=== PATIENT | male | born 1940 ===

== ENCOUNTER 2022-11-06 05:55 | Observation (INO) | payer MEDICARE, OTHER, SELFPAY ==
[2022-11-06] VITALS (15 sets, daily range): BP systolic 131–189; BP diastolic 64–93; PULSE 55–71; RESP 16–18; TEMP 36.2–37.1; O2SAT 87–99; BMI 26.2
--- NOTE | 2022-11-06 05:57 | DI.RAD.S_ITS ---
PROCEDURE: XR CHEST 1V INDICATIONS: chest pain TECHNIQUE: One view of the chest was acquired. COMPARISON: None. FINDINGS: Surgical changes and devices: None. Lungs and pleura: Lungs are clear. No pleural effusions or pneumothorax. Mediastinum: Mediastinal contours appear normal. Heart size is normal. Bones and chest wall: No suspicious bony lesions. Overlying soft tissues appear unremarkable. IMPRESSION: No acute process. Dictated by: Tano Soto M.D. on 11/06/2022 at 7:57 Approved by: Tano Soto M.D. on 11/06/2022 at 7:58
--- NOTE | 2022-11-06 06:22 | ED_ITS ---
HPI - General Adult <Gerson Gonzalez DO - Last Filed: 11/06/22 17:54> General Chief complaint: Chest Pain Stated complaint: Chest Pain Time Seen by Provider: 11/06/22 06:04 History of Present Illness HPI narrative: 82-year-old male nonsmoker with cardiac history presents by EMS for evaluation of epigastric and retrosternal chest pressure that woke him from sleep a few hours ago. He had been in his normal state of health and denies any recent exertional symptoms or exercise intolerance. He denies associated symptoms such as dizzy, weak or light-headedness, no unexplained diaphoresis and no nausea or vomiting. He contacted EMS on [place] and had been given full-dose aspirin and nitroglycerin, the nitro made his pain completely resolve. The medics report that they made attempts to airlift him but there was no access to air medical transport due to fog. He was transported by the [employer] boat and picked up by local EMS. He denies other obvious provocation. Related Data Home Medications Medication Instructions Recorded Confirmed ASPIRIN (#ASPIR 81) 81 mg PO QDAY ##0 07/04/11 ASPIRIN (#ASPIRIN E.C.) 325 mg PO PRN ##0 07/04/11 CHOLECALCIFEROL (VITAMIN D) 2,000 iu PO Q3DAYS ##0 07/04/11 GLUC NINA/CHONDRO NINA A/VIT C/MN 1 cap PO QDAY ##0 07/04/11 (Glucosamine 1,500 Complex Cp) Multivitamin, Minerals, and 1 tab PO QDAY ##0 07/04/11 (#CENTRUM SILVER) atorvastatin 10 mg tablet (Lipitor) 10 mg PO HS ##0 07/04/11 dutasteride 0.5 mg capsule 0.5 mg PO QWEEK ##0 07/04/11 (Avodart) irbesartan 300 mg tablet (Avapro) 300 mg PO QDAY ##0 07/04/11 metoprolol tartrate 50 mg tablet 50 mg PO BID ##0 07/04/11 Allergies Allergy/AdvReac Type Severity Reaction Status Date / Time Milk Containing Products AdvReac Intermediate Verified 11/06/22 10:55 (Dairy) DIURETIC Allergy Severe NOT SURE Uncoded 07/12/17 11:58 OF NAME OF MED CAUSED GOUT SYMPTOMS Review of Systems <Gerson Gonzalez DO - Last Filed: 11/06/22 17:54> Review of Systems Narrative: GENERAL: Denies chills, fatigue, malaise, fever, sweats. HEENT: Denies sinus pain, ear pain, sore throat, difficulty swallowing, dizziness. RESPIRATORY: Denies dyspnea, cough, wheezing, hemoptysis, sputum. CARDIOVASCULAR: See HPI GASTROINTESTINAL: Denies nausea, vomiting, abdominal pain, diarrhea, constipation, melena. : Denies dysuria, frequency, incontinence, hematuria, urinary retention. MUSCULOSKELETAL: denies weakness, joint pain, or bony pain SKIN: Denies rash, skin lesions, or other NEUROLOGIC: Denies weakness, headache, numbness, change in speech, confusion, seizures, incoordination. PSYCHIATRIC: No concerning psychosocial issues. 12 point review of systems is negative except for those stated above Patient History <Gerson Gonzalez DO - Last Filed: 11/06/22 17:54> Medical History (Updated 11/06/22 @ 12:07 by Alex Stuart MD) BPH (benign prostatic hyperplasia) Hyperlipidemia Hypertension Surgical History Status post appendectomy Status post hernia repair (02/12/16) Family History (Updated 11/06/22 @ 12:08 by Alex Stuart MD) Sister Age: 75 Diabetes mellitus Mother Alzheimer's dementia Social History household members: children Smoking Status: Never smoker alcohol intake: former Exam <Gerson Gonzalez DO - Last Filed: 11/06/22 17:54> Narrative Exam Narrative: GENERAL: [82] year old patient appears stated age. Well-developed patient, in mild distress. HEAD: Atraumatic. Normocephalic. EYES: Pupils equal round and reactive. Extraocular motions intact. No scleral icterus. No injection or drainage. ENT: Nose without bleeding, purulent drainage. Throat without erythema, tonsillar hypertrophy or exudate. Airway patent. NECK: Trachea midline. Non tender CARDIOVASCULAR: Regular rate and rhythm without murmurs, gallops, or rubs. RESPIRATORY: Clear to auscultation. Breath sounds equal bilaterally. No wheezes, rales, or rhonchi. GASTROINTESTINAL: Abdomen soft, non-tender, nondistended. EXTREMITIES: No edema or joint tenderness. BACK: Nontender without deformity or crepitance. No flank tenderness. NEURO: AOx3. SKIN: No rash or erythema of visible areas Initial Vital Signs Initial Vital Signs: Vital Signs Temperature 97.5 F L 11/06/22 06:21 Pulse Rate 70 11/06/22 06:21 Respiratory Rate 18 11/06/22 06:21 Blood Pressure 131/66 11/06/22 06:21 Pulse Oximetry 98 11/06/22 06:21 Oxygen Delivery Method Room Air 11/06/22 06:21 <Jose M Michele DO - Last Filed: 11/06/22 10:40> Initial Vital Signs Initial Vital Signs: Vital Signs Temperature 97.5 F L 11/06/22 06:21 Pulse Rate 70 11/06/22 06:21 Respiratory Rate 18 11/06/22 06:21 Blood Pressure 131/66 11/06/22 06:21 Pulse Oximetry 98 11/06/22 06:21 Oxygen Delivery Method Room Air 11/06/22 06:21 Course <Gerson Gonzalez, DO - Last Filed: 11/06/22 17:54> Orders Ordered: ED Orders 11/06/22 09:15 Troponin & CK Cardiac Panel Stat Aspirin (Aspirin Ec 81 Mg Tablet) 81 mg PO DAILY [facility] Last Admin: 11/06/22 13:40 Dose: 81 mg Documented By: SUJEY Atorvastatin Calcium (Atorvastatin 20 Mg Tablet) 10 mg PO BEDTIME [facility] Enoxaparin Sodium (Enoxaparin 40 Mg/0.4 Ml Syringe) 40 mg SUBCUT DAILY [facility] Losartan Potassium (Losartan 50 Mg Tablet) 100 mg PO DAILY [facility] Last Admin: 11/06/22 13:40 Dose: 100 mg Documented By: SUJEY Metoprolol Tartrate (Metoprolol Ir 50 Mg Tablet) 50 mg PO BID [facility] Last Admin: 11/06/22 13:40 Dose: 50 mg Documented By: SUJEY Multivitamins (Multivitamin 1 Tablet) 1 tab PO DAILY [facility] Naloxone HCl (Naloxone 0.4 Mg/Ml Vial) 0.2 mg IV Q2MIN PRN PRN Reason: Opiate Reversal Dutasteride [Avodart (] 0.5 Mg Capsule) 0.5 mg PO Mo@0900 [facility] Ondansetron HCl (Ondansetron 4 Mg Odt) 4 mg SL Q6HR PRN PRN Reason: Nausea Last Admin: 11/06/22 17:22 Dose: 4 mg Documented By: SUJEY Vitamin D (Cholecalciferol (Vitamin D3) 1,000 Unit Tablet) 2,000 unit PO Q3D [facility] Discontinued Medications Sodium Chloride (Normal Saline 0.9%) 1,000 mls @ 150 mls/hr IV CONT [facility] Last Infusion: 11/06/22 11:12 Dose: 0 mls/hr Documented By: Admin: 11/06/22 06:30 Dose: 150 mls/hr Documented By: [place] Non-Formulary Medication (Gluc Nina/Chondro Nina A/Vit C/Mn (Glucosamine 1,500 Complex Cp)) 1 cap PO QDAY [facility] Vital Signs Vital signs: Vital Signs - 8 hr 11/06/22 10:00 11/06/22 10:04 11/06/22 10:04 Pulse Rate 70 71 Blood Pressure 168/93 H Pulse Oximetry 97 97 11/06/22 10:30 Pulse Rate 70 Blood Pressure Pulse Oximetry 98 <Jose M Michele, - Last Filed: 11/06/22 10:40> Orders Ordered: ED Orders 11/06/22 09:15 Troponin & CK Cardiac Panel Stat Aspirin (Aspirin Ec 81 Mg Tablet) 81 mg PO DAILY [facility] Last Admin: 11/06/22 13:40 Dose: 81 mg Documented By: SUJEY Atorvastatin Calcium (Atorvastatin 20 Mg Tablet) 10 mg PO BEDTIME [facility] Enoxaparin Sodium (Enoxaparin 40 Mg/0.4 Ml Syringe) 40 mg SUBCUT DAILY [facility] Losartan Potassium (Losartan 50 Mg Tablet) 100 mg PO DAILY [facility] Last Admin: 11/06/22 13:40 Dose: 100 mg Documented By: SUJEY Metoprolol Tartrate (Metoprolol Ir 50 Mg Tablet) 50 mg PO BID [facility] Last Admin: 11/06/22 13:40 Dose: 50 mg Documented By: SUJEY Multivitamins (Multivitamin 1 Tablet) 1 tab PO DAILY [facility] Naloxone HCl (Naloxone 0.4 Mg/Ml Vial) 0.2 mg IV Q2MIN PRN PRN Reason: Opiate Reversal Dutasteride [Avodart (] 0.5 Mg Capsule) 0.5 mg PO Mo@0900 [facility] Ondansetron HCl (Ondansetron 4 Mg Odt) 4 mg SL Q6HR PRN PRN Reason: Nausea Last Admin: 11/06/22 17:22 Dose: 4 mg Documented By: SUJEY Vitamin D (Cholecalciferol (Vitamin D3) 1,000 Unit Tablet) 2,000 unit PO Q3D [facility] Discontinued Medications Sodium Chloride (Normal Saline 0.9%) 1,000 mls @ 150 mls/hr IV CONT [facility] Last Infusion: 11/06/22 11:12 Dose: 0 mls/hr Documented By: Admin: 11/06/22 06:30 Dose: 150 mls/hr Documented By: [place] Non-Formulary Medication (Gluc Nina/Chondro Nina A/Vit C/Mn (Glucosamine 1,500 Complex Cp)) 1 cap PO QDAY [facility] Vital Signs Vital signs: Vital Signs - 8 hr 11/06/22 10:00 11/06/22 10:04 11/06/22 10:04 Pulse Rate 70 71 Blood Pressure 168/93 H Pulse Oximetry 97 97 11/06/22 10:30 Pulse Rate 70 Blood Pressure Pulse Oximetry 98 Medical Decision Making <Gerson Gnozalez DO - Last Filed: 11/06/22 17:54> Lab Data 11/06/22 06:15 11/06/22 06:15 Labs: Lab Results 11/06/22 11/06/22 11/06/22 Range/Units 06:15 06:15 06:15 WBC 7.9 (4.5-11.0) X10^3/uL RBC 3.51 L (4.5-5.9) X10^6/uL Hgb 11.1 L (13.5-17.5) g/dL Hct 33.1 L (41-53) % MCV 94.3 (80-100) fL MCH 31.7 (26-34) PG MCHC 33.6 (30-36) % RDW 13.1 (11.6-14.8) % Plt Count 140 L (150-400) X10^3/uL Neut % (Auto) 77.5 H (50-75) % Lymph % (Auto) 11.9 L (25-40) % [place] % (Auto) 9.5 (3-14) % Eos % (Auto) 0.7 L (2-4) % Baso % (Auto) 0.4 (0-2) % Neut # (Auto) 6100 (1126-3693) /uL Lymph # (Auto) 900 L (4816-7571) /uL [place] # (Auto) 700 (0-900) /uL Eos # (Auto) 100 (0-450) /uL Baso # (Auto) 0 (0-100) /uL Sodium 137 (137-145) mmol/L Potassium 4.0 (3.4-5.1) mmol/L Chloride 107 (98-107) mmol/L Carbon Dioxide 24 (22-32) mmol/L BUN 32 H (9-20) mg/dL Creatinine 1.08 (0.66-1.25) mg/dL Estimated GFR > 60 (>60) mL/min BUN/Creatinine Ratio 29.6 H (6-22) Glucose 94 (80-110) mg/dL Calcium 8.5 (8.4-10.2) mg/dL Total Bilirubin 0.9 (0.2-1.3) mg/dL AST 157 H (17-59) IU/L ALT 104 H (<50) IU/L Alkaline Phosphatase 126 (38-126) U/L Total Creatine Kinase 46 L (55-170) U/L Troponin I < 0.012 (0.01-0.034) ng/mL NT-Pro-B Natriuret Pep 1930 H (<450) pg/mL Total Protein 6.2 L (6.3-8.2) g/dL Albumin 3.5 (3.5-5.0) g/dL Globulin 2.7 (1.7-4.1) g/dL Albumin/Globulin Ratio 1.3 (1.0-2.8) Lipase 509 H (23-300) U/L 11/06/22 Range/Units 09:15 WBC (4.5-11.0) X10^3/uL RBC (4.5-5.9) X10^6/uL Hgb (13.5-17.5) g/dL Hct (41-53) % MCV (80-100) fL MCH (26-34) PG MCHC (30-36) % RDW (11.6-14.8) % Plt Count (150-400) X10^3/uL Neut % (Auto) (50-75) % Lymph % (Auto) (25-40) % [place] % (Auto) (3-14) % Eos % (Auto) (2-4) % Baso % (Auto) (0-2) % Neut # (Auto) (4514-7321) /uL Lymph # (Auto) (3054-8775) /uL [place] # (Auto) (0-900) /uL Eos # (Auto) (0-450) /uL Baso # (Auto) (0-100) /uL Sodium (137-145) mmol/L Potassium (3.4-5.1) mmol/L Chloride (98-107) mmol/L Carbon Dioxide (22-32) mmol/L BUN (9-20) mg/dL Creatinine (0.66-1.25) mg/dL Estimated GFR (>60) mL/min BUN/Creatinine Ratio (6-22) Glucose (80-110) mg/dL Calcium (8.4-10.2) mg/dL Total Bilirubin (0.2-1.3) mg/dL AST (17-59) IU/L ALT (<50) IU/L Alkaline Phosphatase (38-126) U/L Total Creatine Kinase 39 L (55-170) U/L Troponin I < 0.012 (0.01-0.034) ng/mL NT-Pro-B Natriuret Pep (<450) pg/mL Total Protein (6.3-8.2) g/dL Albumin (3.5-5.0) g/dL Globulin (1.7-4.1) g/dL Albumin/Globulin Ratio (1.0-2.8) Lipase (23-300) U/L Urine Dip Bedside Urine Glucose Negative Bedside Urine Bilirubin - Negative Bedside Urine Ketone +/- 5 Urine Specific [place] 1.015 Bedside Urine Occult Blood - Negative Bedside Urine pH 5.5 Bedside Urine Protein - Negative Bedside Urine Urobilinogen - Negative Bedside Urine Nitrite - Negative Bedside Urine Leukocytes - Negative Esterase Point of care testing: Urine Dip Bedside Urine Glucose Negative Bedside Urine Bilirubin - Negative Bedside Urine Ketone +/- 5 Urine Specific [place] 1.015 Bedside Urine Occult Blood - Negative Bedside Urine pH 5.5 Bedside Urine Protein - Negative Bedside Urine Urobilinogen - Negative Bedside Urine Nitrite - Negative Bedside Urine Leukocytes - Negative Esterase ECG Data Interpretation: 0624] EKG is normal sinus rhythm rate [57 ] and free of any signs of ischemia or ectopy. No ST segmental elevation or depression. T wave inversions, seen on prior MDM Narrative Medical decision making narrative: CC: 82-year-old male with chest pain Complicating co-morbidities: Age, history of prior MD Data collected from: Patient Medical records reviewed: Prior notes reviewed in our EMR Differential considered, but not limited to: Cardiac ischemia versus pulmonary embolism versus dissection versus pancreatitis versus esophageal spasm versus other Exam documented above, pertinent findings include: Heart rate regular, lungs clear with no labored breathing, abdomen soft and nontender Lab Test results independently reviewed as above. Pertinent findings: Independently reviewed EKG as above Imaging studies independently reviewed: Scores Used: MIPS Elements: Consultations: Treatments: Re-evaluations: Discussion: Disposition: see below, along with detailed discharge instructions that have been reviewed with patient as well as indications for ED re-evaluation and additional outpatient follow up <Jose M Michele DO - Last Filed: 11/06/22 10:40> Lab Data Lab results reviewed: Yes I reviewed the patient's lab results. Labs: Lab Results 11/06/22 11/06/22 11/06/22 Range/Units 06:15 06:15 06:15 WBC 7.9 (4.5-11.0) X10^3/uL RBC 3.51 L (4.5-5.9) X10^6/uL Hgb 11.1 L (13.5-17.5) g/dL Hct 33.1 L (41-53) % MCV 94.3 (80-100) fL MCH 31.7 (26-34) PG MCHC 33.6 (30-36) % RDW 13.1 (11.6-14.8) % Plt Count 140 L (150-400) X10^3/uL Neut % (Auto) 77.5 H (50-75) % Lymph % (Auto) 11.9 L (25-40) % [place] % (Auto) 9.5 (3-14) % Eos % (Auto) 0.7 L (2-4) % Baso % (Auto) 0.4 (0-2) % Neut # (Auto) 6100 (7469-5244) /uL Lymph # (Auto) 900 L (8073-8940) /uL [place] # (Auto) 700 (0-900) /uL Eos # (Auto) 100 (0-450) /uL Baso # (Auto) 0 (0-100) /uL Sodium 137 (137-145) mmol/L Potassium 4.0 (3.4-5.1) mmol/L Chloride 107 (98-107) mmol/L Carbon Dioxide 24 (22-32) mmol/L BUN 32 H (9-20) mg/dL Creatinine 1.08 (0.66-1.25) mg/dL Estimated GFR > 60 (>60) mL/min BUN/Creatinine Ratio 29.6 H (6-22) Glucose 94 (80-110) mg/dL Calcium 8.5 (8.4-10.2) mg/dL Total Bilirubin 0.9 (0.2-1.3) mg/dL AST 157 H (17-59) IU/L ALT 104 H (<50) IU/L Alkaline Phosphatase 126 (38-126) U/L Total Creatine Kinase 46 L (55-170) U/L Troponin I < 0.012 (0.01-0.034) ng/mL NT-Pro-B Natriuret Pep 1930 H (<450) pg/mL Total Protein 6.2 L (6.3-8.2) g/dL Albumin 3.5 (3.5-5.0) g/dL Globulin 2.7 (1.7-4.1) g/dL Albumin/Globulin Ratio 1.3 (1.0-2.8) Lipase 509 H (23-300) U/L // Range/Units 09:15 WBC (4.5-11.0) X10^3/uL RBC (4.5-5.9) X10^6/uL Hgb (13.5-17.5) g/dL Hct (41-53) % MCV (80-100) fL MCH (26-34) PG MCHC (30-36) % RDW (11.6-14.8) % Plt Count (150-400) X10^3/uL Neut % (Auto) (50-75) % Lymph % (Auto) (25-40) % [place] % (Auto) (3-14) % Eos % (Auto) (2-4) % Baso % (Auto) (0-2) % Neut # (Auto) (9746-2076) /uL Lymph # (Auto) (8290-5995) /uL [place] # (Auto) (0-900) /uL Eos # (Auto) (0-450) /uL Baso # (Auto) (0-100) /uL Sodium (137-145) mmol/L Potassium (3.4-5.1) mmol/L Chloride (98-107) mmol/L Carbon Dioxide (22-32) mmol/L BUN (9-20) mg/dL Creatinine (0.66-1.25) mg/dL Estimated GFR (>60) mL/min BUN/Creatinine Ratio (6-22) Glucose (80-110) mg/dL Calcium (8.4-10.2) mg/dL Total Bilirubin (0.2-1.3) mg/dL AST (17-59) IU/L ALT (<50) IU/L Alkaline Phosphatase (38-126) U/L Total Creatine Kinase 39 L (55-170) U/L Troponin I < 0.012 (0.01-0.034) ng/mL NT-Pro-B Natriuret Pep (<450) pg/mL Total Protein (6.3-8.2) g/dL Albumin (3.5-5.0) g/dL Globulin (1.7-4.1) g/dL Albumin/Globulin Ratio (1.0-2.8) Lipase (23-300) U/L Urine Dip Bedside Urine Glucose Negative Bedside Urine Bilirubin - Negative Bedside Urine Ketone +/- 5 Urine Specific [place] 1.015 Bedside Urine Occult Blood - Negative Bedside Urine pH 5.5 Bedside Urine Protein - Negative Bedside Urine Urobilinogen - Negative Bedside Urine Nitrite - Negative Bedside Urine Leukocytes - Negative Esterase Point of care testing: Urine Dip Bedside Urine Glucose Negative Bedside Urine Bilirubin - Negative Bedside Urine Ketone +/- 5 Urine Specific [place] 1.015 Bedside Urine Occult Blood - Negative Bedside Urine pH 5.5 Bedside Urine Protein - Negative Bedside Urine Urobilinogen - Negative Bedside Urine Nitrite - Negative Bedside Urine Leukocytes - Negative Esterase Imaging Data Chest x-ray: Radiologist's Impression: PROCEDURE:? XR CHEST 1V ? INDICATIONS:? chest pain ? TECHNIQUE:? One view of the chest was acquired.? ? COMPARISON:? None. ? FINDINGS:? ? Surgical changes and devices:? None.? ? Lungs and pleura:? Lungs are clear.? No pleural effusions or pneumothorax.? ? Mediastinum:? Mediastinal contours appear normal.? Heart size is normal.? ? Bones and chest wall:? No suspicious bony lesions.? Overlying soft tissues appear unremarkable.? ? IMPRESSION:? No acute process. MDM Narrative Medical decision making narrative: CC: 82-year-old male with chest pain Complicating co-morbidities: Age, history of prior MD Data collected from: Patient Medical records reviewed: Prior notes reviewed in our EMR Differential considered, but not limited to: Cardiac ischemia versus pulmonary embolism versus dissection versus pancreatitis versus esophageal spasm versus other Exam documented above, pertinent findings include: Heart rate regular, lungs clear with no labored breathing, abdomen soft and nontender Lab Test results independently reviewed as above. Pertinent findings: Independently reviewed EKG as above Imaging studies independently reviewed: Scores Used: MIPS Elements: Consultations: Treatments: Re-evaluations: Discussion: Disposition: see below, along with detailed discharge instructions that have been reviewed with patient as well as indications for ED re-evaluation and additional outpatient follow up Dr Michele: Received turned over. Viewed patient's history and physical exam and workup up to this point. Patient has been asymptomatic since arrival here in the ER. Patient clinically not in heart failure. No signs of infection. Troponins negative x2. Nonischemic EKG. Had a discussion with the patient regarding options to include discharged home and follow-up with his primary doctor versus being admitted to the hospital for further risk stratification. [place] here last evening because of the weather. He would like to be admitted to the hospital for further evaluation. I did discuss the case with Dr. Stuart the hospitalist on-call who will admit for further evaluation and treatment. Patient did receive a full-dose aspirin prior to arrival here in the ER. Discharge Plan Departure Patient Disposition: Admitted as Observation Clinical Impression: Chest pain Admit Date/Time: 11/06/22 10:44 Admit Provider: Alex Stuart
[2022-11-06 06:27] LABS: Add Manual Diff / Slide Review NO; Basophils Absolute Auto 0 /uL (0-100); Basophils Percent Auto 0.4 % (0-2); Eosinophils Absolute Auto 100 /uL (0-450); Eosinophils Percent Auto 0.7 % (2-4); Hematocrit 33.1 % (41-53); Hemoglobin 11.1 g/dL (13.5-17.5); Lymphocytes Absolute Auto 900 /uL (1100-4500); Lymphocytes Percent Auto 11.9 % (25-40); Mean Corpuscular HGB Conc 33.6 % (30-36); Mean Corpuscular Hemoglobin 31.7 PG (26-34); Mean Corpuscular Volume 94.3 fL (80-100); Monocytes Absolute Auto 700 /uL (0-900); Monocytes Percent Auto 9.5 % (3-14); Neutrophils Absolute Auto 6100 /uL (1500-7000); Neutrophils Percent Auto 77.5 % (50-75); Platelet Count 140 X10^3/uL (150-400); Red Blood Cell Count 3.51 X10^6/uL (4.5-5.9); Red Cell Distribution Width 13.1 % (11.6-14.8); White Blood Cell Count 7.9 X10^3/uL (4.5-11.0)
[2022-11-06] MEDS: SODIUM CHLORIDE 0.9% 1,000 ML 150 ML IV (06:30)
[2022-11-06 06:50] LABS: Alanine Aminotransferase 104 IU/L (<50); Albumin 3.5 g/dL (3.5-5.0); Albumin Globulin Ratio 1.3 (1.0-2.8); Alkaline Phosphatase 126 U/L (38-126); Aspartate Aminotransferase 157 IU/L (17-59); BUN Creatinine Ratio 29.6 (6-22); Bilirubin Total 0.9 mg/dL (0.2-1.3); Blood Urea Nitrogen 32 mg/dL (9-20); Calcium 8.5 mg/dL (8.4-10.2); Carbon Dioxide 24 mmol/L (22-32); Chloride 107 mmol/L (98-107); Creatine Kinase 46 U/L (55-170); Estimated Glomerular Filt Rate > 60 mL/min (>60); Globulin 2.7 g/dL (1.7-4.1); Glucose 94 mg/dL (80-110); HEMOLYSIS 46 (0-50); Lipase 509 U/L (23-300); Sodium 137 mmol/L (137-145); Total Protein 6.2 g/dL (6.3-8.2)
[2022-11-06 06:51] LABS: NT-proBNP (BNP-Adult 18+) 1930 pg/mL (<450)
[2022-11-06 07:01] LABS: Troponin I < 0.012 ng/mL (0.01-0.034)
[2022-11-06 09:31] LABS: Creatine Kinase 39 U/L (55-170)
[2022-11-06 09:44] LABS: Troponin I < 0.012 ng/mL (0.01-0.034)
--- NOTE | 2022-11-06 10:54 | P.HP_ITS ---
History of Present Illness History of Present Illness Date Patient Seen: 11/06/22 Time Patient Seen: 12:06 Chief complaint: Chest Pain Narrative: This is an 82 year old male with BPH, HTN and HLD who was woken up from sleep last night with an aching pain in the epigastrium/lower sternum. The pain lasted 1-2 hours and resolved with tools and parts attendant treatment, presumably nitroglycerin/aspirin. He lives on [address]. Since arriving in the ED he has been pain free. His troponin is normal. The hemoglobin is 11.1. The BNP is quite elevated at 1930. The chest x-ray is normal. The EKG showed nonspecific T-wave changes. He is admitted for telemetry observation, serial troponins, echocardiogram and treadmill NM scan. He reports that 5 years ago he had a similar nocturnal chest pain episode with an EKG that suggested ?a small heart attack that healed itself. ? He does not recall doing any cardiac evaluation at that time. [facility] Medical History (Updated 11/06/22 @ 12:07 by Alex Stuart MD) BPH (benign prostatic hyperplasia) Hyperlipidemia Hypertension Surgical History Status post appendectomy Status post hernia repair (02/12/16) Family History (Updated 11/06/22 @ 12:08 by Alex Stuart MD) Sister Age: 75 Diabetes mellitus Mother Alzheimer's dementia Meds Home Medications and Allergies Home Medications Medication Instructions Recorded Confirmed Type ASPIRIN (#ASPIR 81) 81 mg PO QDAY ##0 07/04/11 History ASPIRIN (#ASPIRIN E.C.) 325 mg PO PRN ##0 07/04/11 History CHOLECALCIFEROL (VITAMIN D) 2,000 iu PO Q3DAYS ##0 07/04/11 History GLUC NINA/CHONDRO NINA A/VIT C/MN 1 cap PO QDAY ##0 07/04/11 History (Glucosamine 1,500 Complex Cp) Multivitamin, Minerals, and 1 tab PO QDAY ##0 07/04/11 History (#CENTRUM SILVER) atorvastatin 10 mg tablet (Lipitor) 10 mg PO HS ##0 07/04/11 History dutasteride 0.5 mg capsule 0.5 mg PO QWEEK ##0 07/04/11 History (Avodart) irbesartan 300 mg tablet (Avapro) 300 mg PO QDAY ##0 07/04/11 History metoprolol tartrate 50 mg tablet 50 mg PO BID ##0 07/04/11 History Allergies Allergy/AdvReac Type Severity Reaction Status Date / Time Milk Containing Products AdvReac Intermediate Verified 11/06/22 10:55 (Dairy) DIURETIC Allergy Severe NOT SURE Uncoded 07/12/17 11:58 OF NAME OF MED CAUSED GOUT SYMPTOMS Review of Systems Review of Systems Narrative: Positive for epigastric/lower sternal central chest pain Negative for nausea, shortness breath, palpitations, abdominal pain, bleeding, rashes, joint pain, seizures, new allergies, sore throat, dysuria Exam Vital Signs (past 8 hours): - 11/06/22 06:21 11/06/22 06:30 11/06/22 06:30 Temperature 97.5 F L Pulse Rate 70 55 L Respiratory Rate 18 Blood Pressure 131/66 142/68 H Pulse Oximetry 98 98 Oxygen Delivery Method Room Air 11/06/22 07:00 11/06/22 07:00 11/06/22 07:30 Temperature Pulse Rate 58 L Respiratory Rate Blood Pressure 131/66 146/70 H Pulse Oximetry 98 Oxygen Delivery Method 11/06/22 07:30 11/06/22 08:00 11/06/22 08:00 Temperature Pulse Rate 55 L 71 Respiratory Rate Blood Pressure 139/64 Pulse Oximetry 97 87 L Oxygen Delivery Method 11/06/22 08:30 11/06/22 08:30 11/06/22 09:00 Temperature Pulse Rate 55 L Respiratory Rate Blood Pressure 167/78 H 175/86 H Pulse Oximetry 97 Oxygen Delivery Method 11/06/22 09:00 11/06/22 09:30 11/06/22 10:00 Temperature Pulse Rate 63 57 L 70 Respiratory Rate Blood Pressure Pulse Oximetry 97 97 97 Oxygen Delivery Method 11/06/22 10:04 11/06/22 10:04 11/06/22 10:30 Temperature Pulse Rate 71 70 Respiratory Rate Blood Pressure 168/93 H Pulse Oximetry 97 98 Oxygen Delivery Method Oxygen Delivery Method Room Air Narrative Exam Narrative: Alert and oriented x3 No apparent distress. Heart is regular rate and rhythm without murmur Lungs are clear to auscultation bilaterally Abdomen is soft, bowel sounds positive, nontender, organomegaly Pupils are equally round and reactive extraocular muscles are intact Sclerae are pink and nonicteric Throat looks normal No lymph nodes are felt head, neck supraclavicular area There is no thyromegaly JVD is less than 6 cm No carotid bruits are heard Extremities have 1+ pitting ankle edema bilaterally There is no chest tenderness Motor function is 4/5 throughout No tremor Intact Skin has no rash or jaundice Objective ECG Impression: Sinus rhythm with nonspecific T-wave changes in leads 3, AVF, V5 and V6. Imaging Chest x-ray: My impression: No infiltrate Normal heart size Labs 11/06/22 06:15 11/06/22 06:15 Labs: Laboratory Results - last 24 hr 11/06/22 11/06/22 11/06/22 06:15 06:15 06:15 WBC 7.9 RBC 3.51 L Hgb 11.1 L Hct 33.1 L MCV 94.3 MCH 31.7 MCHC 33.6 RDW 13.1 Plt Count 140 L Neut % (Auto) 77.5 H Lymph % (Auto) 11.9 L [place] % (Auto) 9.5 Eos % (Auto) 0.7 L Baso % (Auto) 0.4 Neut # (Auto) 6100 Lymph # (Auto) 900 L [place] # (Auto) 700 Eos # (Auto) 100 Baso # (Auto) 0 Sodium 137 Potassium 4.0 Chloride 107 Carbon Dioxide 24 BUN 32 H Creatinine 1.08 Estimated GFR > 60 BUN/Creatinine Ratio 29.6 H Glucose 94 Calcium 8.5 Total Bilirubin 0.9 AST 157 H ALT 104 H Alkaline Phosphatase 126 Total Creatine Kinase 46 L Troponin I < 0.012 NT-Pro-B Natriuret Pep 1930 H Total Protein 6.2 L Albumin 3.5 Globulin 2.7 Albumin/Globulin Ratio 1.3 Lipase 509 H 11/06/22 09:15 WBC RBC Hgb Hct MCV MCH MCHC RDW Plt Count Neut % (Auto) Lymph % (Auto) [place] % (Auto) Eos % (Auto) Baso % (Auto) Neut # (Auto) Lymph # (Auto) [place] # (Auto) Eos # (Auto) Baso # (Auto) Sodium Potassium Chloride Carbon Dioxide BUN Creatinine Estimated GFR BUN/Creatinine Ratio Glucose Calcium Total Bilirubin AST ALT Alkaline Phosphatase Total Creatine Kinase 39 L Troponin I < 0.012 NT-Pro-B Natriuret Pep Total Protein Albumin Globulin Albumin/Globulin Ratio Lipase Assessment & Plan Assessment & Plan narrative: This is an 82-year-old male with a history of hypertension, hyperlipidemia and BPH who was woken up from sleep last night with an aching pain in the epigastrium/lower sternum. The pain lasted 1-2 hours and resolved with tools and parts attendant treatment, presumably nitroglycerin/aspirin. He lives on [address]. Since arriving in the ED he has been pain free. His troponin is normal. The hemoglobin is 11.1. The BNP is quite elevated at 1930. The chest x-ray is normal. The EKG showed nonspecific T-wave changes. He is admitted for telemetry observation, serial troponins, echocardiogram and treadmill NM scan. Chest pain, present on admission. Active. -resolved before arrival in the ED from [place] by [facility] -EKG without signs of acute MD. Troponins negative. Elevated BNP. -Echocardiogram ordered -serial troponins ordered -nuclear medicine cardiac stress test ordered -telemetry ordered -continue atorvastatin, metoprolol, Avapro, aspirin Elevated BNP, present on admission. Active. -No signs of CHF on CXR -Follow -Echo ordered Hypertension, present on admission. Active. -continue Avapro and metoprolol Hyperlipidemia, present on admission. Chronic. -continue atorvastatin. BPH, present on admission. Chronic. -continue Avodart Lovenox for DVT prevention. Backup decision maker is his son.
--- NOTE | 2022-11-06 10:54 | DI.NM.S_ITS ---
PROCEDURE: NM PASCALE PERF SPECT R&S PHARM Rest and pharmacological stress myocardial perfusion SPECT with gated imaging and ejection fraction RADIOPHARMACEUTICAL: 10.3 mCi Tc-99m tetrafosmin IV at rest and 26.2 mCi Tc-99m tetrafosmin IV at peak effect of pharmacological stress. [id number] was performed. INDICATIONS: Chest Pain TECHNIQUE: Radiopharmaceutical was injected at peak stress test, and also at rest. SPECT images were obtained. SPECT myocardial perfusion images were displayed in short axis, horizontal long axis, and vertical long axis views. Gated images were reviewed using RightScale software. COMPARISON: None. CARDIAC STRESS: A pharmacologic stress test was performed under the supervision of an attending staff, using an infusion of lexiscan 0.4mg IV X1. Hemodynamic data: There is normal blood pressure and heart rate response to pharmacologic stress. Symptoms: The patient denied anginal chest pain. Aminophylline: none EKG: No diagnostic changes of ischemia; no ectopy. FINDINGS: Raw data: There is good myocardial uptake of radiotracer. No significant motion artifacts. Left ventricle function: Gated images demonstrate normal left ventricular wall thickening. No segmental wall motion abnormalities. No transient ischemic dilation; TID is 1.07 (normal less than 1.3). Left ventricle resting end diastolic volume is 129 mL. Left ventricle stress ejection fraction is 69%; normal range is above 45%. Myocardial perfusion: There is a severely intense fixed defect of the entire inferior wall and inferolateral wall extending to the inferoapex consistent with prior infarction. No significant scotty-infarct ischemia. No prone images obtained due to limited mobility of the patient. IMPRESSION: Abnormal pharm nuclear stress test consistent with prior infarction. 1) There is a severely intense fixed defect of the entire inferior wall and inferolateral wall extending to the inferoapex consistent with prior infarction. No significant scotty-infarct ischemia. 2) Normal left ventricular size, wall motion, and systolic function (EF post stress 69%). 3) No diagnostic ST changes with lexiscan. 4) No angina during the study. 5) No prior nuclear stress test available for comparison. Dictated by: Marcy Oscar MD on 11/07/2022 at 12:58 Approved by: Marcy Oscar MD on 11/07/2022 at 13:02
--- NOTE | 2022-11-06 12:04 | DI.ECHO.S_ITS ---
[facility] +---------+ : : [address] : : : : [id number] : : : : Phone: [phone]+ Echocardiogram Report + + :Name: MAURY IZQUIERDO Study Date: 11/07/2022 Height: 70 in : :[facility] ReadingLocation: Weight: 183 lb : : Gender: Male BSA: 2.0 m2 : :: 1940 Age: 82 yrs BP: 157/83 mmHg: :Reason For Study: CHEST PAIN : :Ordering Physician: MAYA, : :NICO Mancilla Performed By: Edie Madsen : :Referring: NICO TREJO : + + Interpretation Summary Normal left ventricle size with ejection fraction 55-60%. Mildly dilated left atrium. The aortic valve is mildly calcified. Mild to moderate mitral regurgitation. Mild tricuspid regurgitation. Right ventricular systolic pressure is estimated to be 34 mmHg plus the clinically estimated CVP which cannot be estimated on this exam. The ascending aorta is mildly enlarged. Procedure: A two-dimensional transthoracic echocardiogram with color flow and Doppler was performed. The study quality was technically adequate. There is no prior echocardiogram noted for this patient. The patient was in sinus rhythm with heart rates between 56-62 bpm during the exam. Left Ventricle: The left ventricle is normal in size and wall thickness. The ejection fraction is estimated to be 55-60%. There are no focal wall motion abnormalities. Right Ventricle: The right ventricle is normal in size and function. Atria: The left atrium is mildly dilated. Right atrial size is normal. There is no Doppler evidence for an interatrial shunt. Mitral Valve: The mitral valve leaflets are mildly calcified. There is mild to moderate mitral regurgitation. Aortic Valve: The aortic valve is trileaflet. The aortic valve opens well. The aortic valve is mildly calcified. There is no aortic valve stenosis. No aortic regurgitation is present. Tricuspid Valve: The tricuspid valve is normal in structure and function. There is mild tricuspid regurgitation. Right ventricular systolic pressure is estimated to be 34 mmHg plus the clinically estimated CVP which cannot be estimated on this exam. Pulmonic Valve: The pulmonic valve is not well visualized. There is trace pulmonic regurgitation. Great Vessels: The aortic root is normal size. The ascending aorta is mildly enlarged. The inferior vena cava was not well visualized. Pericardium/ Pleura There is no pericardial effusion. There is no pleural effusion. MMode/2D Measurements & Calculations LVIDd: 5.4 cm LVOT diam: 2.0 cm LVIDs: 4.0 cm Ao root diam: 3.5 cm FS: 26.3 % asc Aorta Diam: 4.0 cm IVSd: 0.77 cm Ao Arch Diam (Prox Trans): 2.4 cm LVPWd: 0.93 cm LV underwood. diameter/BSA (cm/m^2): 2.7 LV sys. diameter/BSA (cm/m^2): 2.0 LA A2 area: 29.0 cm2 RA long axis: 6.1 cm LA A4 area: 22.3 cm2 RA area: 19.2 cm2 LA length (vol): 6.3 cm RA vol: 50.8 ml LA vol: 87.4 ml RA : 25.3 ml/m2 LA vol index: 43.5 ml/m2 RVD1 (basal): 3.6 cm RVD2 (mid): 2.7 cm TAPSE: 1.8 cm Doppler Measurements & Calculations Ao V2 max: 171.8 cm/sec LVOT Max Placido: 111.6 cm/sec Ao V2 mean: 119.5 cm/sec LV V1 max P.0 mmHg Ao max P.8 mmHg LV V1 VTI: 25.5 cm Ao mean P.4 mmHg MAYDA(I,D): 2.0 cm2 Ao V2 VTI: 40.9 cm MAYDA(V,D): 2.1 cm2 sev ratio: 0.62 MAYDA indexed to BSA (cm^2/m^2): 0.99 MV E max placido: 97.7 cm/sec TR max placido: 291.3 cm/sec MV A max placido: 76.8 cm/sec TR max P.9 mmHg MV E/A: 1.3 PA V2 max: 71.5 cm/sec Med Peak E' Placido: 4.7 cm/sec PA V2 mean: 54.9 cm/sec E/E' med: 21.0 PA mean P.3 mmHg Lat Peak E' Placido: 6.6 cm/sec PA pr(Accel): 36.2 mmHg E/E' lat: 14.8 E/e' average: 17.9 MV dec time: 0.28 sec MVA(VTI): 2.0 cm2 MV V2 mean: 61.4 cm/sec SV(LVOT): 81.6 ml MV mean P.7 mmHg MV V2 VTI: 40.4 cm Electronically signed by: Zhanna Randhawa on Reading Physician:11/07/2022 09:29 AM
--- NOTE | 2022-11-06 13:13 | PC.NURSE ---
Pt arrived in wheelchair from ED at 1130, hypertensive but otherwise VSS. A&Ox4, no c/o chest pain or SOB. Bowel sounds present, last BM 2 or 3 days ago but pt does not feel constipated and does not want any stool softeners. Tele #5, NSR. Pt oriented to room and call light, sitting up in chair, wearing grippy socks, call light within reach.
[2022-11-06] MEDS: ASPIRIN EC 81 MG TABLET PO (13:40)
[2022-11-06] MEDS: LOSARTAN 50 MG TABLET 100 MG PO (13:40)
[2022-11-06] MEDS: METOPROLOL IR 50 MG TABLET PO ×2 (13:40→21:15)
[2022-11-06] MEDS: ONDANSETRON 4 MG ODT SL (17:22)
[2022-11-06] MEDS: ATORVASTATIN 20 MG TABLET 10 MG PO (21:16)
[2022-11-06 22:49] LABS: Troponin I < 0.012 ng/mL (0.01-0.034)
[2022-11-07 00:39] VITALS: BP 165/85; PULSE 64; RESP 16; TEMP 37.1; O2SAT 95
[2022-11-07 04:08] VITALS: BP 157/83; PULSE 63; RESP 16; TEMP 36.8; O2SAT 96
[2022-11-07 06:16] LABS: NT-proBNP (BNP-Adult 18+) 5570 pg/mL (<450)
[2022-11-07 06:19] LABS: Troponin I < 0.012 ng/mL (0.01-0.034)
--- NOTE | 2022-11-07 06:30 | DI.CT.S_ITS ---
PROCEDURE: CT ABDOMEN PELVIS W CON INDICATIONS: suspected pancreatitis TECHNIQUE: After the administration of oral and IV contrast, axial sections were acquired from the lung bases to the pubic symphysis. Coronal and sagittal reformats were performed. For radiation dose reduction, the following was used: automated exposure control, adjustment of mA and/or kV according to patient size. COMPARISON: None. FINDINGS: Image quality: Excellent. Lung bases: Unremarkable. Small hiatal hernia. Heart: No significant findings. ABDOMEN: Liver: Normal size. Moderate hepatic steatosis. There are few small indeterminate hypodense nodules in the anterior liver, probably hepatic cysts. Gallbladder: No gallstones. There is a small amount of pericholecystic fluid. Biliary ducts: Unremarkable. Pancreas: Unremarkable. Spleen: Unremarkable. Adrenal Glands: Unremarkable. Kidneys and Ureters: There are several simple appearing cysts in left kidney. No renal stones or hydronephrosis. Stomach and Bowel: Stomach, small bowel loops, and colon are unremarkable. Diverticulosis without acute diverticulitis. There is a moderate amount of stool in colon. Peritoneum: No abnormal intraperitoneal fluid. No free air. Ventral Wall: No hernia. There is a 1.2 x 1.7 cm subcutaneous nodule right of midline posterior to T8, probably a sebaceous cyst. Abdominal Nodes: No retroperitoneal or mesenteric adenopathy by size criteria. Vessels: Mild infrarenal abdominal aortic aneurysm measuring 4.1 x 3.8 cm. Moderate atherosclerotic calcifications. PELVIS: Pelvic Organs: Prostate is enlarged. Bladder: Unremarkable. Pelvic Nodes: No enlarged lymph nodes. Miscellaneous: No inguinal hernias are seen. Bones: Scoliosis and degenerative changes in lumbar spine. IMPRESSION: 1. Pancreas has normal appearance on CT, which does not exclude clinical pancreatitis. 2. There is a small amount of pericholecystic fluid. No radiopaque gallstones. Recommend gallbladder ultrasound or HIDA scan for further evaluation. 3. Small hiatal hernia. 4. Diverticulosis without acute diverticulitis. 5. Enlarged prostate. 6. Infrarenal abdominal aortic aneurysm. 7. A 1.2 x 1 point cm subcutaneous nodule in the back posterior to T8, probably a sebaceous cyst. Recommend correlation with findings on physical exam. 8. Several simple appearing left renal cysts. Dictated by: Irene Gore M.D. on 11/07/2022 at 13:13 Approved by: Irene Gore M.D. on 11/07/2022 at 13:25
[2022-11-07 06:31] LABS: Cholesterol 74 mg/dL (140-199); HDL Cholesterol 26 mg/dL (40-60); LDL Cholesterol Calculated 39 mg/dL (<100); Triglycerides 47 mg/dL (35-150)
[2022-11-07 08:00] VITALS: BP 149/74; PULSE 54; RESP 16; TEMP 37.5; O2SAT 95
--- NOTE | 2022-11-07 09:31 | CM.DANOTE ---
DCP Assessment Note Patient is a 82yo male here under hospitalist care after experiencing chest pain at home. PCP: Doctor in [place]. Couldn't remember name. Payer: Medicare and self pay PROGRAM MGR reviewed EMR. PROGRAM MGR entered room and introduced self and role. Patient appeared A/Ox4. Patient was accompanied by daughter Gabriela ([phone]). Patient lives on [address] with his son, Delmar ([phone]) and DUANE Cooper. Patient is independent and ambulatory at baseline, and often golfs. No DME. 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 Patient drives his golf cart around the [place] and has support from family to drive longer distances. DIL and son assist with tasks around the house. Patient reports they are doing some tests today and is hopeful to go home. Not open to HH now but PROGRAM MGR gave daughter an [facility] brochure in case in the future they would like HH services ordered through his PCP. Plan: patient will likely d/c home when medically stable to home [place], transport with daughter in [facility]. CM team will continue to follow closely. JENNI Richards Discharge Planning/Care Management Advanced directive, confirm from FAMILY Start: 11/06/22 12:21 Freq: Q24H Status: Active Protocol: Document 11/06/22 12:21 (Rec: 11/06/22 13:43 [id number]) Advance Directive, confirm on record Time 13:43 Person contacted Pt Copy received No CM Discharge Assessment Start: 11/07/22 09:29 Freq: Status: Active Protocol: Document 11/07/22 09:29 (Rec: 11/07/22 09:30 [id number]) Discharge Planning Assessment Assigned Speech And Hearing Director JENNI Huynh DPOA/Assigned Designee Name Gabriela (daughter) Contact Information [phone] Advance Directives? Yes Advance Directives on File No History Provided By Patient,Family Member,Medical Record Prior Living Arrangements House Household Members children Comment lives with adult son and DIL Independent with ADL's Yes Is patient alert and oriented? Yes Discharge Plan Home Transportation Arrangement family in [place] Whiteboard Updated in Patient Room with Yes name and ext. # of Speech And Hearing Director Review Status In Process Next Review Type Continued Stay Review
[2022-11-07 10:43] VITALS: BP 150/70; PULSE 50
[2022-11-07] MEDS: LOSARTAN 50 MG TABLET 100 MG PO (10:43)
[2022-11-07] MEDS: CHOLECALCIFEROL (VITAMIN D3) 1,000 UNIT TABLET 2000 UNIT PO (10:43)
[2022-11-07] MEDS: AMLODIPINE 5 MG TABLET 10 MG PO (10:48)
[2022-11-07] MEDS: ASPIRIN EC 81 MG TABLET PO (10:48)
[2022-11-07] MEDS: ENOXAPARIN 40 MG/0.4 ML SYRINGE SUBCUT (10:48)
[2022-11-07] MEDS: MULTIVITAMIN 1 TABLET 1 TAB PO (10:48)
[2022-11-07 12:00] VITALS: BP 132/64; PULSE 60; RESP 16; TEMP 36.6; O2SAT 97
--- NOTE | 2022-11-07 14:08 | PM.DS.1 ---
History of Present Illness History of Present Illness Date Patient Seen: 11/07/22 Time Patient Seen: 14:08 Chief complaint: Chest Pain Narrative: This is an 82 year old male with BPH, HTN and HLD who was woken up from sleep last night with an aching pain in the epigastrium/lower sternum. The pain lasted 1-2 hours and resolved with coroner transport technician treatment, presumably nitroglycerin/aspirin. He lives on [place]. Since arriving in the ED he has been pain free. His troponin is normal. The hemoglobin is 11.1. The BNP is quite elevated at 1930. The chest x-ray is normal. The EKG showed nonspecific T-wave changes. He is admitted for telemetry observation, serial troponins, echocardiogram and treadmill NM scan. He reports that 5 years ago he had a similar nocturnal chest pain episode with an EKG that suggested ?a small heart attack that healed itself. ? He does not recall doing any cardiac evaluation at that time. Discharge Providers Provider Date of admission: 11/06/22 10:44 Discharge Date: 11/07/22 Discharge provider: Jevon Moura DO Summary Hospital Course Discharge Diagnosis: Chest pain, present on admission. now resolved Elevated BNP, present on admission. possible new diagnosis diastolic heart failure Hypertension, present on admission.? Active. Hyperlipidemia, present on admission.? Chronic.? BPH, present on admission.? Chronic. Prior CAD Hospital Course: This is an 82 M with PMH of HTN, HLD, BPH who presented with an episode of acute chest pain. Initial testing ruled out ACS. Echocardiogram was unremarkable with normal EF and no wall motion abnormalities. He underwent nuclear stress testing which showed an old fixed defect consistent with prior AL (he had been told this before that he had a prior AL). He was noted to have an elevated proBNP with intermittent abdominal pain. Lipase was elevated, but CT showed pericholecystic fluid but no thickening and no pancreatitis. This is thought to be probably due to some mild diastolic heart failure. He had no respiratory symptoms, and given mildly elevated BP he was started on furosemide 20 mg daily to see if there would be improvement in his overall symptoms. 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 Time Spent with Patient Time spent: Greater than 30 minutes Exam Vital Signs (past 8 hours): - 11/07/22 08:00 11/07/22 10:43 11/07/22 09:30 Temperature 99.5 F Pulse Rate 54 L 50 L Respiratory Rate 16 Blood Pressure 149/74 H 150/70 H Pulse Oximetry 95 Oxygen Delivery Method Room Air Oxygen Flow Rate 0 11/07/22 12:00 Temperature 97.8 F Pulse Rate 60 Respiratory Rate 16 Blood Pressure 132/64 Pulse Oximetry 97 Oxygen Delivery Method Oxygen Flow Rate 0 Oxygen Delivery Method Room Air Oxygen Flow Rate 0 Narrative Exam Narrative: Alert and oriented x3 No apparent distress. Heart is regular rate and rhythm without murmur Lungs are clear to auscultation bilaterally Abdomen is soft, bowel sounds positive, nontender, organomegaly Sclerae are pink and nonicteric Extremities have trace edema No tremor Skin has no rash or jaundice Objective Labs 11/06/22 06:15 11/06/22 06:15 Labs: Laboratory Results - last 24 hr 11/06/22 11/07/22 11/07/22 22:20 05:00 05:00 Troponin I < 0.012 < 0.012 NT-Pro-B Natriuret Pep 5570 H Triglycerides Cholesterol LDL Cholesterol, Calc HDL Cholesterol 11/07/22 05:00 Troponin I NT-Pro-B Natriuret Pep Triglycerides 47 Cholesterol 74 L LDL Cholesterol, Calc 39 HDL Cholesterol 26 L [facility] Medical History (Updated 11/06/22 @ 12:07 by Alex Stuart MD) BPH (benign prostatic hyperplasia) Hyperlipidemia Hypertension Surgical History Status post appendectomy Status post hernia repair (02/12/16) Family History (Updated 11/06/22 @ 12:08 by Alex Stuart MD) Sister Age: 75 Diabetes mellitus Mother Alzheimer's dementia Social History household members: children Smoking Status: Never smoker alcohol intake: former Discharge Plan Discharge Plan Patient Disposition: Home Provider Discharge Comment: You were admitted to the hospital with chest pain and possible abdominal pain. This is probably due to mild diastolic heart failure (difficult for heart to relax). Stress testing showed an old heart attack, but nothing new. Gallbladder has some fluid around it, likely due to the heart issue. Recommend PCP follow up in 1-2 weeks to recheck symptoms after starting low dose diuretic and repeat lab evaluation. Okay to continue atorvastatin at 10 mg a day given cholesterol levels, but consider increasing with primary care provider based on prior AL. Discharge orders & Medications Prescriptions: New aspirin [Adult Aspirin Regimen] 81 mg tablet,delayed release (DR/EC) 81 mg PO DAILY 30 Days Qty: 30 0RF furosemide 20 mg tablet 20 mg PO DAILY 30 Days Qty: 30 0RF Continued atorvastatin [Lipitor] 10 MG tablet 10 mg PO HS Qty: 0 dutasteride [Avodart] 0.5 MG capsule 0.5 mg PO 2XW Qty: 0 Rx Instructions: takes on monday and on monday losartan 100 mg tablet 100 mg PO DAILY metoprolol succinate 25 mg tablet 25 mg PO DAILY tamsulosin 0.4 mg tablet 0.4 mg PO ONCE HS PreserVision AREDS 1 tab tablet 1 tab PO DAILY Vitamin B-12 1 tab tablet 1 tab PO DAILY Diet/Activity/Treatments Diet: Diet as Tolerated and Low-sodium Activity: As tolerated, no restrictions Visit Report/Discharge Packet Instructions: Heart Failure, DI for Heart Failure, Heart Failure: Salt and Fluids, DI for Heart Failure Exacerbations Stand Alone Forms: Patient Portal/API, Stroke Signs & Symptoms Discharge Data Attending Provider: Alex Stuart Admit Date/Time: 11/06/22 10:44 Discharges patient from system. Discharge Date/Time: 11/07/22 15:43
--- NOTE | 2022-11-07 15:41 | PC.NURSE ---
Pt discharged home at 1535, escorted off floor in wheelchair accompanied by family and hospital staff. IV removed, tele d/c'd, discharge teaching provided including new medications, follow up appointment, worsening symptoms and dietary changes. Questions answered. Patient left with all belongings.
== END 2022-11-07 15:43 | disposition home or self-care (01) ==
LOC: ED 10:44 → AC 10:45
PROVIDERS: Emergency Medicine; Internal Medicine; Admitting Provider Family Medicine; Emergency Provider Emergency Medicine; Family Provider Family Medicine; Referring Provider Emergency Medicine; Visit Provider Family Medicine
DX: R07.9 Chest pain, unspecified (principal); I10 Essential (primary) hypertension; E78.5 Hyperlipidemia, unspecified
CPT/HCPCS: 36415; 71045; 74177; 78452; 80053; 80061; 81003; 82550; 83690; 83880; 84484; 85025; 93005; 93017; 93306; 96360; 96361; 96372; 99284; G0378; A9502; J1650; J2785; Q9967

== ENCOUNTER → 2023-08-05 07:51 | Outpatient (CLI) | payer MEDICARE, OTHER, SELFPAY ==
[2022-11-06 12:08] VITALS: BMI 26.2
[2023-08-05 10:08] LABS: Appearance Urine UA SL CLOUDY; Bilirubin Urine UA NEGATIVE (NEGATIVE); Color Urine UA YELLOW; Glucose Urine UA NEGATIVE (Negative); Ketones Urine UA NEGATIVE (NEGATIVE); Leukocyte Esterase Urine UA 2+ (NEGATIVE); Nitrite Urine UA NEGATIVE (Negative); Occult Blood Urine UA 1+ (Negative); Protein Urine UA NEGATIVE (Negative); Urobilinogen Urine UA 0.2 E.U./dL (0.2)
[2023-08-05 10:09] LABS: Bacteria Urine Few (2-10); RBC Urine 1-5/HPF (0-5/HPF); Squamous Epithelial Cell Urine None Seen (0-5/HPF); Urine Volume 10mL (spun); WBC Urine >100/HPF (0-5/HPF)
== END ==
PROVIDERS: Family Provider Family Medicine; Visit Provider Physician Assistant
DX: R35.0 Frequency of micturition (principal)
CPT/HCPCS: 81001; 87077; 87086; 87186

== ENCOUNTER 2023-08-13 12:08 | Emergency (ER) | payer OTHER, MEDICARE, SELFPAY ==
[2022-11-06 12:08] VITALS: BMI 26.2
[2023-08-13] VITALS (15 sets, daily range): BP systolic 146–188; BP diastolic 71–99; PULSE 75–86; RESP 15–24; TEMP 36.8–36.9; O2SAT 92–99; BMI 25.7
--- NOTE | 2023-08-13 14:04 | ED.MALEGU ---
HPI - Male Genitourinary <Katerin Banks PA-C - Last Filed: 08/13/23 19:15> General Chief complaint: Urogenital-Male Stated complaint: UTI Time Seen by Provider: 08/13/23 13:48 Source: patient and family Mode of arrival: Wheelchair History of Present Illness HPI Narrative: 83-year-old male who resides on [place] brought in by his son for urinary incontinence. He does reside home alone and cares for himself, he was recently seen in [place] at the [facility] where his urologist is located he is unsure of the name, but apparently had an indwelling urinary catheter that was removed on August 03. He believes he was treated for a UTI thus the need for the catheter. He was seen in our walk-in clinic on August 04 and had urinary symptoms at that time his urine dip was performed and his urine was sent for culture records indicate he grew Enterococcus faecalis. He was not prescribed antibiotics pending his culture, he does not believe he is started any new medication since resulting. He is endorsing some new weakness for the last couple of days and per his son he normally is able to walk and perform his ADLs at home without any assistance. He is denying any fever, nausea, chills, body aches, he endorses some abdominal pain he points to the suprapubic area, he is denying any penile symptoms or scrotal swelling, he does report some low back pain, just above the crack?. He is denying any new injury, numbness, tingling, loss of sensation of his extremities. He is denying any shortness of breath, chest pain, or disruption during sleep except of course for increased frequency of urination and loss of bladder control. He is currently taking Flomax 4 mg daily. All other systems are reviewed and are negative. Related Data Home Medications Medication Instructions Recorded Confirmed atorvastatin 10 mg tablet (Lipitor) 10 mg PO HS ##0 07/04/11 08/05/23 dutasteride 0.5 mg capsule 0.5 mg PO 2XW ##0 07/04/11 08/05/23 (Avodart) PreserVision AREDS 1 tab PO DAILY 11/07/22 08/05/23 Vitamin B-12 1 tab PO DAILY 11/07/22 08/05/23 losartan 100 mg PO DAILY 11/07/22 08/05/23 metoprolol succinate 25 mg PO DAILY 11/07/22 08/05/23 tamsulosin 0.4 mg PO ONCE HS 11/07/22 08/05/23 Previous Rx's Medication Instructions Recorded phenazopyridine 200 mg tablet 200 mg PO TID PRN pain 6 doses #6 08/05/23 (Pyridium) tabs nystatin 100,000 unit/gram topical 1 applic topical BID 7 days #30 08/13/23 cream grams Allergies Allergy/AdvReac Type Severity Reaction Status Date / Time Milk Containing Products AdvReac Intermediate Verified 08/05/23 07:14 (Dairy) DIURETIC Allergy Severe NOT SURE Uncoded 08/05/23 07:14 OF NAME OF MED CAUSED GOUT SYMPTOMS Review of Systems <Katerin Banks PA-C - Last Filed: 08/13/23 19:15> Review of Systems Narrative: All other systems reviewed and are negative. Patient History <Katerin Banks PA-C - Last Filed: 08/13/23 19:15> Medical History BPH (benign prostatic hyperplasia) Hyperlipidemia Hypertension Surgical History Status post hernia repair (02/12/16) Status post appendectomy Family History Sister Age: 75 Diabetes mellitus Mother Alzheimer's dementia Social History household members: children Smoking Status: Never smoker alcohol intake: former Smoking Status: Never smoker Substance Use Type: does not use Exam <Katerin Banks PA-C - Last Filed: 08/13/23 19:15> Initial Vital Signs Initial Vital Signs: Vital Signs Temperature 98.4 F 08/13/23 13:01 Pulse Rate 80 08/13/23 13:01 Respiratory Rate 18 08/13/23 13:01 Blood Pressure 146/71 H 08/13/23 13:01 Pulse Oximetry 98 08/13/23 13:01 Oxygen Delivery Method Room Air 08/13/23 13:01 Const Other: Smiling, seated, no distress. He was able to ambulate to the toilet without assistance. Neck Lymphatic: No lymphadenopathy Resp Other: Clear to auscultation throughout no wheezes rales or rhonchi. Cardio Other: Regular rate and rhythm. GI Inspection: normal to inspection and non-distended Percussion: normal to percussion Auscultation: normal bowel sounds Rectal Exam: normal sphincter tone, No fecal impaction, heme negative stool, prostate abnormal (Mild enlargement, no guarding with palpation.) and visual inspection abnormal Other: No CVA tenderness. Mild pink inflammation in the perianal area with raised borders. Nontender, no pustules papules or vesicles, findings consistent with candidiasis. No skin breakdown, nontender. Normal rectal tone. Nontender JOSEPH. Penis: normal penis Meatus: meatus normal and no meatla discharge Scrotum: scrotum normal Testes: normal, no testicular swelling and no testicular tenderness Back/Spine/Pelvis Other: No CVA tenderness. No swelling, no discoloration. Skin Other: Normal color, turgor, temperature. No rashes. Extrem Other: Moves all extremities, able to stand from a seated position on his own and ambulate to the toilet. Psych Other: Alert and oriented x4. Normal speech. Pleasant affect. <Zaki Julio MD - Last Filed: 08/15/23 12:23> Initial Vital Signs Initial Vital Signs: Vital Signs Temperature 98.4 F 08/13/23 13:01 Pulse Rate 80 08/13/23 13:01 Respiratory Rate 18 08/13/23 13:01 Blood Pressure 146/71 H 08/13/23 13:01 Pulse Oximetry 98 08/13/23 13:01 Oxygen Delivery Method Room Air 08/13/23 13:01 Course <Katerin Banks PA-C - Last Filed: 08/13/23 19:15> Course Course Narrative: Review of his records it appears that he has a urinary tract infection based on his culture results from August 05, 2023. His lactate is normal, his CBC shows mildly low H and H compared to last year a drop of 1 point. He is guaiac negative for stools, negative abdomen except for some suprapubic tenderness. His bladder is nondistended. He is able to urinate. Urine dip today shows findings consistent with urinary tract infection. New culture was reflexed. Chemistry finally resulted and is showing a creatinine of 6.98, BUN 72 potassium 5.4, sodium 130, albumin 3.4 No recent prior labs for comparison. Last creatinine was one year ago and normal. I have discussed the case with Dr. Michele the attending physician, I will order 12-lead ECG, a renal ultrasound, a post-void residual bladder scan as well as a bolus of normal saline 1 L. Repeat labs following. Orders Ordered: Discontinued Medications Sodium Chloride (Normal Saline 0.9%) 1,000 mls @ 1,000 mls/hr IV BOLUS ONE Stop: 08/13/23 17:53 Last Infusion: 08/13/23 18:52 Dose: Infused Documented By: Admin: 08/13/23 17:15 Dose: 1,000 mls/hr Documented By: ZARIA Sodium Chloride (Normal Saline 0.9%) 500 mls @ 1,000 mls/hr IV BOLUS PRN PRN Reason: Fluid replacement Ampicillin Sodium 1,000 mg/ (Sodium Chloride) 100 mls @ 200 mls/hr IV NOW ONE Stop: 08/14/23 03:00 Last Infusion: 08/14/23 03:58 Dose: Infused Documented By: Admin: 08/14/23 03:14 Dose: 200 mls/hr Documented By: DEVANG Lidocaine HCl (Lidocaine 2% (Glydo) 6 Ml Gel) 6 ml TOP NOW ONE Stop: 08/13/23 18:02 Last Admin: 08/13/23 18:11 Dose: 6 ml Documented By: ZARIA Ondansetron HCl (Ondansetron 4 Mg Odt) 4 mg SL NOW PRN PRN Reason: Nausea And Vomiting Ondansetron HCl (Ondansetron 4 Mg/2 Ml Inj) 4 mg IV NOW PRN PRN Reason: Nausea And Vomiting Reevaluation(s) Reevaluation #1: He was re-evaluated serially, his back pain has resolved following Melgar insertion and emptying of 1300 mL of urine. His vital signs remain unchanged and stable. No shortness of breath or chest pain throughout his stay, his lung sounds remain clear even following 1000 mL normal saline bolus. Vital Signs Vital signs: Vital Signs - 8 hr 08/13/23 23:30 08/14/23 00:00 08/14/23 00:01 Pulse Rate 76 81 Respiratory Rate 18 21 Blood Pressure 156/82 H Pulse Oximetry 97 97 Oxygen Delivery Method Nasal Cannula Oxygen Flow Rate 1.5 08/14/23 00:01 08/14/23 00:30 08/14/23 00:30 Pulse Rate 79 78 Respiratory Rate 19 Blood Pressure 164/79 H Pulse Oximetry 97 Oxygen Delivery Method Nasal Cannula Oxygen Flow Rate 2 08/14/23 01:00 08/14/23 01:00 08/14/23 01:30 Pulse Rate 76 79 Respiratory Rate 20 27 H Blood Pressure 176/81 H Pulse Oximetry 97 97 Oxygen Delivery Method Nasal Cannula Oxygen Flow Rate 2 08/14/23 01:30 08/14/23 02:00 08/14/23 02:00 Pulse Rate 77 Respiratory Rate 19 Blood Pressure 167/96 H 168/83 H Pulse Oximetry Oxygen Delivery Method Oxygen Flow Rate 08/14/23 02:30 08/14/23 02:30 08/14/23 03:00 Pulse Rate 76 76 Respiratory Rate 19 17 Blood Pressure 165/77 H Pulse Oximetry 96 96 Oxygen Delivery Method Oxygen Flow Rate 08/14/23 03:14 08/14/23 03:14 08/14/23 03:30 Pulse Rate 80 79 Respiratory Rate 16 17 Blood Pressure 166/81 H Pulse Oximetry 98 98 Oxygen Delivery Method Oxygen Flow Rate 08/14/23 03:32 08/14/23 03:32 Pulse Rate 79 Respiratory Rate 16 Blood Pressure 156/81 H Pulse Oximetry 98 Oxygen Delivery Method Oxygen Flow Rate Vital signs remained stable during his fast-track course <Zaki Julio MD - Last Filed: 08/15/23 12:23> Orders Ordered: Discontinued Medications Sodium Chloride (Normal Saline 0.9%) 1,000 mls @ 1,000 mls/hr IV BOLUS ONE Stop: 08/13/23 17:53 Last Infusion: 08/13/23 18:52 Dose: Infused Documented By: Admin: 08/13/23 17:15 Dose: 1,000 mls/hr Documented By: ZARIA Sodium Chloride (Normal Saline 0.9%) 500 mls @ 1,000 mls/hr IV BOLUS PRN PRN Reason: Fluid replacement Ampicillin Sodium 1,000 mg/ (Sodium Chloride) 100 mls @ 200 mls/hr IV NOW ONE Stop: 08/14/23 03:00 Last Infusion: 08/14/23 03:58 Dose: Infused Documented By: Admin: 08/14/23 03:14 Dose: 200 mls/hr Documented By: DEVANG Lidocaine HCl (Lidocaine 2% (Glydo) 6 Ml Gel) 6 ml TOP NOW ONE Stop: 08/13/23 18:02 Last Admin: 08/13/23 18:11 Dose: 6 ml Documented By: ZARIA Ondansetron HCl (Ondansetron 4 Mg Odt) 4 mg SL NOW PRN PRN Reason: Nausea And Vomiting Ondansetron HCl (Ondansetron 4 Mg/2 Ml Inj) 4 mg IV NOW PRN PRN Reason: Nausea And Vomiting Vital Signs Vital signs: Vital Signs - 8 hr 08/13/23 23:30 08/14/23 00:00 08/14/23 00:01 Pulse Rate 76 81 Respiratory Rate 18 21 Blood Pressure 156/82 H Pulse Oximetry 97 97 Oxygen Delivery Method Nasal Cannula Oxygen Flow Rate 1.5 08/14/23 00:01 08/14/23 00:30 08/14/23 00:30 Pulse Rate 79 78 Respiratory Rate 19 Blood Pressure 164/79 H Pulse Oximetry 97 Oxygen Delivery Method Nasal Cannula Oxygen Flow Rate 2 08/14/23 01:00 08/14/23 01:00 08/14/23 01:30 Pulse Rate 76 79 Respiratory Rate 20 27 H Blood Pressure 176/81 H Pulse Oximetry 97 97 Oxygen Delivery Method Nasal Cannula Oxygen Flow Rate 2 08/14/23 01:30 08/14/23 02:00 08/14/23 02:00 Pulse Rate 77 Respiratory Rate 19 Blood Pressure 167/96 H 168/83 H Pulse Oximetry Oxygen Delivery Method Oxygen Flow Rate 08/14/23 02:30 08/14/23 02:30 08/14/23 03:00 Pulse Rate 76 76 Respiratory Rate 19 17 Blood Pressure 165/77 H Pulse Oximetry 96 96 Oxygen Delivery Method Oxygen Flow Rate 08/14/23 03:14 08/14/23 03:14 08/14/23 03:30 Pulse Rate 80 79 Respiratory Rate 16 17 Blood Pressure 166/81 H Pulse Oximetry 98 98 Oxygen Delivery Method Oxygen Flow Rate 08/14/23 03:32 08/14/23 03:32 Pulse Rate 79 Respiratory Rate 16 Blood Pressure 156/81 H Pulse Oximetry 98 Oxygen Delivery Method Oxygen Flow Rate MDM - Male Genitourinary <Katerin Banks PA-C - Last Filed: 08/13/23 19:15> Medical Records Attestation: I reviewed the patient's medical records. Lab Data Lab results narrative: Normal white blood cell count, lactate normal 0.9, abnormal creatinine 6.98, BUN 72, potassium 5.4, sodium 130, random urine sodium is normal, creatinine urine also normal. No prior chemistries for comparison that are recent his last 1 was over a year ago and his creatinine was normal. Troponin 0.017, magnesium 1.9, elevated phosphorus 5.2, and repeat chemistries show potassium of 5.6, sodium unchanged at 130, creatinine increased to 7.18, calcium remains unchanged 8.3. 08/13/23 14:20 08/14/23 02:46 Labs: Lab Results 08/13/23 08/13/23 08/13/23 Range/Units 14:03 14:20 18:05 WBC 7.2 (4.5-11.0) X10^3/uL RBC 3.20 L (4.5-5.9) X10^6/uL Hgb 10.1 L (13.5-17.5) g/dL Hct 29.9 L (41-53) % MCV 93.6 (80-100) fL MCH 31.4 (26-34) PG MCHC 33.6 (30-36) % RDW 13.1 (11.6-14.8) % Plt Count 197 (150-400) X10^3/uL Neut % (Auto) 75.5 H (50-75) % Lymph % (Auto) 10.6 L (25-40) % Park % (Auto) 10.9 (3-14) % Eos % (Auto) 1.9 L (2-4) % Baso % (Auto) 1.1 (0-2) % Neut # (Auto) 5400 (2382-7709) /uL Lymph # (Auto) 800 L (5868-3478) /uL Park # (Auto) 800 (0-900) /uL Eos # (Auto) 100 (0-450) /uL Baso # (Auto) 100 (0-100) /uL Sodium 130 L 130 L (137-145) mmol/L Potassium 5.4 H 5.6 H (3.4-5.1) mmol/L Chloride 102 103 (98-107) mmol/L Carbon Dioxide 19 L 17 L (22-32) mmol/L BUN 72 H 71 H (9-20) mg/dL Creatinine 6.98 H 7.18 H (0.66-1.25) mg/dL Estimated GFR 7 L 7 L (>60) mL/min BUN/Creatinine Ratio 10.3 9.9 (6-22) Glucose 109 99 (80-110) mg/dL Lactate 0.9 (0.7-2.1) mmol/L Calcium 8.3 L 8.3 L (8.4-10.2) mg/dL Phosphorus 5.2 H (2.3-3.7) mg/dL Magnesium 1.9 (1.6-2.3) mg/dL Total Bilirubin 0.6 0.6 (0.2-1.3) mg/dL AST 21 19 (17-59) IU/L ALT 24 22 (<50) IU/L Alkaline Phosphatase 86 81 (38-126) U/L Troponin I 0.017 (0.01-0.034) ng/mL Total Protein 6.4 5.9 L (6.3-8.2) g/dL Albumin 3.4 L 3.1 L (3.5-5.0) g/dL Globulin 3.0 2.8 (1.7-4.1) g/dL Albumin/Globulin Ratio 1.1 1.1 (1.0-2.8) Urine Color Yellow Urine Appearance Cloudy Urine pH 6.0 (4.5-8.0) Ur Specific [place] 1.010 (1.000-1.035) Urine Protein Trace H (Negative) Urine Glucose (UA) Negative (Negative) g/dL Urine Ketones Negative (NEGATIVE) Urine Occult Blood 1+ H (Negative) Urine Nitrate Negative (Negative) Urine Bilirubin Negative (NEGATIVE) Urine Urobilinogen 0.2 (0.2) E.U./dL Ur Leukocyte Esterase 3+ H (NEGATIVE) Urine RBC 0-1/hpf (0-5/HPF) Urine WBC 30-100/hpf H (0-5/HPF) Ur Squamous Epith Cells 5-10 /hpf H (0-5/HPF) Urine Bacteria Moderate (10-30) H (None) Ur Culture Indicated? Specimen cultured Vol Urine Centrifuged 10ml (spun) Ur Random Sodium 40 (30-90) mmol/L Urine Creatinine 58.3 mg/dL 08/14/23 08/14/23 Range/Units 00:30 02:46 WBC (4.5-11.0) X10^3/uL RBC (4.5-5.9) X10^6/uL Hgb (13.5-17.5) g/dL Hct (41-53) % MCV (80-100) fL MCH (26-34) PG MCHC (30-36) % RDW (11.6-14.8) % Plt Count (150-400) X10^3/uL Neut % (Auto) (50-75) % Lymph % (Auto) (25-40) % Park % (Auto) (3-14) % Eos % (Auto) (2-4) % Baso % (Auto) (0-2) % Neut # (Auto) (0829-3922) /uL Lymph # (Auto) (5819-9604) /uL Park # (Auto) (0-900) /uL Eos # (Auto) (0-450) /uL Baso # (Auto) (0-100) /uL Sodium 135 L 136 L (137-145) mmol/L Potassium 5.1 5.0 (3.4-5.1) mmol/L Chloride 108 H 109 H (98-107) mmol/L Carbon Dioxide 19 L 20 L (22-32) mmol/L BUN 64 H 63 H (9-20) mg/dL Creatinine 5.55 H 5.14 H (0.66-1.25) mg/dL Estimated GFR 9 L 10 L (>60) mL/min BUN/Creatinine Ratio 11.5 12.3 (6-22) Glucose 89 85 (80-110) mg/dL Lactate (0.7-2.1) mmol/L Calcium 8.2 L 8.3 L (8.4-10.2) mg/dL Phosphorus (2.3-3.7) mg/dL Magnesium (1.6-2.3) mg/dL Total Bilirubin (0.2-1.3) mg/dL AST (17-59) IU/L ALT (<50) IU/L Alkaline Phosphatase (38-126) U/L Troponin I (0.01-0.034) ng/mL Total Protein (6.3-8.2) g/dL Albumin (3.5-5.0) g/dL Globulin (1.7-4.1) g/dL Albumin/Globulin Ratio (1.0-2.8) Urine Color Urine Appearance Urine pH (4.5-8.0) Ur Specific [place] (1.000-1.035) Urine Protein (Negative) Urine Glucose (UA) (Negative) g/dL Urine Ketones (NEGATIVE) Urine Occult Blood (Negative) Urine Nitrate (Negative) Urine Bilirubin (NEGATIVE) Urine Urobilinogen (0.2) E.U./dL Ur Leukocyte Esterase (NEGATIVE) Urine RBC (0-5/HPF) Urine WBC (0-5/HPF) Ur Squamous Epith Cells (0-5/HPF) Urine Bacteria (None) Ur Culture Indicated? Vol Urine Centrifuged Ur Random Sodium (30-90) mmol/L Urine Creatinine mg/dL Imaging Data Renal US: My Impression: Per the continuous pillowcase cutter mild bilateral hydronephrosis, incidental left cortical renal cysts, 1080 mL urine in the bladder. Melgar catheter placed. Bladder Scan-post void residual: My Impression: Per the clinical pharmacy technician that was only 100 mL. I question this as the renal ultrasound performed showed 1080 mL and he has not even had his intravenous bolus yet. ECG Data Interpretation: Twelve lead ECG shows a sinus rhythm without ectopy, no T or P wave abnormalities normal SC interval, machine interpretation states inferior infarct age undetermined. [facility] Narrative Medical decision making narrative: He has a positive urine culture dated August 05, 2023, and apparently did not take an antimicrobial for this. Chemistry reveals renal failure, renal ultrasound showed 1080 mL in the bladder, mild bilateral hydronephrosis and a left renal cortical cyst. Treating with normal saline bolus, added urine studies (Crea, Na) both normal. Troponin, Mg, Ph and repeat chemistries following bolus. Melgar catheter placed showing cloudy urine and a total of 1300 mL emptied. Vital signs remain stable and unchanged, he is comfortable laying in the gurney with several warm blankets. field ironworker was consulted earlier regarding his home environment and in-home care as he resides alone on [place]. Patient was transferred back to the main emergency department and report given to Dr. Julio the attending for continuation of care. <Zkai Julio MD - Last Filed: 08/15/23 12:23> Lab Data Labs: Lab Results 08/13/23 08/13/23 08/13/23 Range/Units 14:03 14:20 18:05 WBC 7.2 (4.5-11.0) X10^3/uL RBC 3.20 L (4.5-5.9) X10^6/uL Hgb 10.1 L (13.5-17.5) g/dL Hct 29.9 L (41-53) % MCV 93.6 (80-100) fL MCH 31.4 (26-34) PG MCHC 33.6 (30-36) % RDW 13.1 (11.6-14.8) % Plt Count 197 (150-400) X10^3/uL Neut % (Auto) 75.5 H (50-75) % Lymph % (Auto) 10.6 L (25-40) % Park % (Auto) 10.9 (3-14) % Eos % (Auto) 1.9 L (2-4) % Baso % (Auto) 1.1 (0-2) % Neut # (Auto) 5400 (4484-5133) /uL Lymph # (Auto) 800 L (6564-3600) /uL Park # (Auto) 800 (0-900) /uL Eos # (Auto) 100 (0-450) /uL Baso # (Auto) 100 (0-100) /uL Sodium 130 L 130 L (137-145) mmol/L Potassium 5.4 H 5.6 H (3.4-5.1) mmol/L Chloride 102 103 (98-107) mmol/L Carbon Dioxide 19 L 17 L (22-32) mmol/L BUN 72 H 71 H (9-20) mg/dL Creatinine 6.98 H 7.18 H (0.66-1.25) mg/dL Estimated GFR 7 L 7 L (>60) mL/min BUN/Creatinine Ratio 10.3 9.9 (6-22) Glucose 109 99 (80-110) mg/dL Lactate 0.9 (0.7-2.1) mmol/L Calcium 8.3 L 8.3 L (8.4-10.2) mg/dL Phosphorus 5.2 H (2.3-3.7) mg/dL Magnesium 1.9 (1.6-2.3) mg/dL Total Bilirubin 0.6 0.6 (0.2-1.3) mg/dL AST 21 19 (17-59) IU/L ALT 24 22 (<50) IU/L Alkaline Phosphatase 86 81 (38-126) U/L Troponin I 0.017 (0.01-0.034) ng/mL Total Protein 6.4 5.9 L (6.3-8.2) g/dL Albumin 3.4 L 3.1 L (3.5-5.0) g/dL Globulin 3.0 2.8 (1.7-4.1) g/dL Albumin/Globulin Ratio 1.1 1.1 (1.0-2.8) Urine Color Yellow Urine Appearance Cloudy Urine pH 6.0 (4.5-8.0) Ur Specific [place] 1.010 (1.000-1.035) Urine Protein Trace H (Negative) Urine Glucose (UA) Negative (Negative) g/dL Urine Ketones Negative (NEGATIVE) Urine Occult Blood 1+ H (Negative) Urine Nitrate Negative (Negative) Urine Bilirubin Negative (NEGATIVE) Urine Urobilinogen 0.2 (0.2) E.U./dL Ur Leukocyte Esterase 3+ H (NEGATIVE) Urine RBC 0-1/hpf (0-5/HPF) Urine WBC 30-100/hpf H (0-5/HPF) Ur Squamous Epith Cells 5-10 /hpf H (0-5/HPF) Urine Bacteria Moderate (10-30) H (None) Ur Culture Indicated? Specimen cultured Vol Urine Centrifuged 10ml (spun) Ur Random Sodium 40 (30-90) mmol/L Urine Creatinine 58.3 mg/dL 08/14/23 08/14/23 Range/Units 00:30 02:46 WBC (4.5-11.0) X10^3/uL RBC (4.5-5.9) X10^6/uL Hgb (13.5-17.5) g/dL Hct (41-53) % MCV (80-100) fL MCH (26-34) PG MCHC (30-36) % RDW (11.6-14.8) % Plt Count (150-400) X10^3/uL Neut % (Auto) (50-75) % Lymph % (Auto) (25-40) % Park % (Auto) (3-14) % Eos % (Auto) (2-4) % Baso % (Auto) (0-2) % Neut # (Auto) (3358-2390) /uL Lymph # (Auto) (1605-1797) /uL Park # (Auto) (0-900) /uL Eos # (Auto) (0-450) /uL Baso # (Auto) (0-100) /uL Sodium 135 L 136 L (137-145) mmol/L Potassium 5.1 5.0 (3.4-5.1) mmol/L Chloride 108 H 109 H (98-107) mmol/L Carbon Dioxide 19 L 20 L (22-32) mmol/L BUN 64 H 63 H (9-20) mg/dL Creatinine 5.55 H 5.14 H (0.66-1.25) mg/dL Estimated GFR 9 L 10 L (>60) mL/min BUN/Creatinine Ratio 11.5 12.3 (6-22) Glucose 89 85 (80-110) mg/dL Lactate (0.7-2.1) mmol/L Calcium 8.2 L 8.3 L (8.4-10.2) mg/dL Phosphorus (2.3-3.7) mg/dL Magnesium (1.6-2.3) mg/dL Total Bilirubin (0.2-1.3) mg/dL AST (17-59) IU/L ALT (<50) IU/L Alkaline Phosphatase (38-126) U/L Troponin I (0.01-0.034) ng/mL Total Protein (6.3-8.2) g/dL Albumin (3.5-5.0) g/dL Globulin (1.7-4.1) g/dL Albumin/Globulin Ratio (1.0-2.8) Urine Color Urine Appearance Urine pH (4.5-8.0) Ur Specific [place] (1.000-1.035) Urine Protein (Negative) Urine Glucose (UA) (Negative) g/dL Urine Ketones (NEGATIVE) Urine Occult Blood (Negative) Urine Nitrate (Negative) Urine Bilirubin (NEGATIVE) Urine Urobilinogen (0.2) E.U./dL Ur Leukocyte Esterase (NEGATIVE) Urine RBC (0-5/HPF) Urine WBC (0-5/HPF) Ur Squamous Epith Cells (0-5/HPF) Urine Bacteria (None) Ur Culture Indicated? Vol Urine Centrifuged Ur Random Sodium (30-90) mmol/L Urine Creatinine mg/dL MDM Narrative Medical decision making narrative: He has a positive urine culture dated August 05, 2023, and apparently did not take an antimicrobial for this. Chemistry reveals renal failure, renal ultrasound showed 1080 mL in the bladder, mild bilateral hydronephrosis and a left renal cortical cyst. Treating with normal saline bolus, added urine studies (Crea, Na) both normal. Troponin, Mg, Ph and repeat chemistries following bolus. Melgar catheter placed showing cloudy urine and a total of 1300 mL emptied. Vital signs remain stable and unchanged, he is comfortable laying in the gurney with several warm blankets. field ironworker was consulted earlier regarding his home environment and in-home care as he resides alone on [address] [place]. Patient was transferred back to the main emergency department and report given to Dr. Julio the attending for continuation of care. [place], 08/13/2023 at 7:45 p.m. Signout from SHERYL Banks from ED fast track, with previous ED attending supervision Dr. Michele. Disposition pending, possible transfer. 83-year-old male resident of [place], had ELIJAH and enterococcal urinary tract infection treated [facility] June 2023, creatinine 3.3 eventually improved to 1.4, was treated with antibiotic course. Patient had Melgar catheter removed for 3 24, then had urinary incontinence post removal, in clinic at [place] on 08/05/2023 had urinalysis sent, subsequently grew enterococcal faecalis species that is essentially pansensitive (resistant to tetracycline), no antibiotics thus far given. Still having urinary incontinence symptoms, here for further evaluation. On lab testing found to have BUN 72 with creatinine 6.9. Melgar catheter placed with 1300 cc nonbloody urine out, appearing slightly cloudy. IV ampicillin given for recent untreated enterococcal UTI. Potassium initial study 5.4. Some IV fluids given. Repeat BNP shows slight increase in BUN and creatinine 72/7.18, and potassium 5.6. EKG without QRS widening. Case discussed with Urology incidentally while presenting another case, who thought this patient needed to be transferred to higher level of facility with nephrology consultative services. We will attempt transfer back to [facility]. P.o. Lokelma dose for now. 9:15 p.m., case discussed with Dr. Lovelace hospitalist at [facility], agrees with [facility], agrees with need for transfer, fortunately have no beds now, wait listed for transfer now. We will repeat BMP at midnight and 0 300 if still here. Attempt transfer to other Services, though apparently no beds [facility] 10:10 p.m.. Patient accepted for transfer to [facility], Dr. Lovelace hospitalist accepting. We will arrange ground EMS transport Critical Care Time <Zaki Julio MD - Last Filed: 08/15/23 12:23> Critical Care Time Critical Care Time: Yes Total Critical Care Time: 45 Attestation: The high probability of a clinically significant, sudden or life threatening deterioration of the [genitourinary, renal] system(s) required my full and direct attention, intervention and personal management. The aggregate critical care time was [35] minutes. This time is in addition to time spent performing reported procedures but includes the following: [x] Data Review and interpretation [x] Patient assessment and monitoring of vital signs [x] Documentation [x] Medication orders and management Discharge Plan Departure Patient Disposition: [facility] Clinical Impression: Hydronephrosis determined by ultrasound, Bacterial UTI, Candidiasis of anus, Acute hyperkalemia Acute renal failure Qualifiers: Acute renal failure type: unspecified Qualified Code(s): N17.9 - Acute kidney failure, unspecified Prescriptions: New nystatin 100,000 unit/gram cream 1 applic topical BID 7 Days Qty: 30 0RF No Action phenazopyridine [Pyridium] 200 mg tablet 200 mg PO TID PRN (Reason: pain) Qty: 6 0RF atorvastatin [Lipitor] 10 MG tablet 10 mg PO HS Qty: 0 dutasteride [Avodart] 0.5 MG capsule 0.5 mg PO 2XW Qty: 0 Rx Instructions: takes on monday and on monday losartan 100 mg tablet 100 mg PO DAILY metoprolol succinate 25 mg tablet 25 mg PO DAILY tamsulosin 0.4 mg tablet 0.4 mg PO ONCE HS PreserVision AREDS 1 tab tablet 1 tab PO DAILY Vitamin B-12 1 tab tablet 1 tab PO DAILY Referrals: Miscellaneous,Doctor, [Primary Care Provider] - (Accepted for transfer to [facility], Dr. Lovelace accepting hospitalist)
[2023-08-13 14:28] LABS: Add Manual Diff / Slide Review NO; Basophils Absolute Auto 100 /uL (0-100); Basophils Percent Auto 1.1 % (0-2); Eosinophils Absolute Auto 100 /uL (0-450); Eosinophils Percent Auto 1.9 % (2-4); Hematocrit 29.9 % (41-53); Hemoglobin 10.1 g/dL (13.5-17.5); Lymphocytes Absolute Auto 800 /uL (1100-4500); Lymphocytes Percent Auto 10.6 % (25-40); Mean Corpuscular HGB Conc 33.6 % (30-36); Mean Corpuscular Hemoglobin 31.4 PG (26-34); Mean Corpuscular Volume 93.6 fL (80-100); Monocytes Absolute Auto 800 /uL (0-900); Monocytes Percent Auto 10.9 % (3-14); Neutrophils Absolute Auto 5400 /uL (1500-7000); Neutrophils Percent Auto 75.5 % (50-75); Platelet Count 197 X10^3/uL (150-400); Red Cell Distribution Width 13.1 % (11.6-14.8); White Blood Cell Count 7.2 X10^3/uL (4.5-11.0)
[2023-08-13 14:32] LABS: Appearance Urine UA CLOUDY; Bilirubin Urine UA NEGATIVE (NEGATIVE); Color Urine UA YELLOW; Glucose Urine UA NEGATIVE (Negative); Ketones Urine UA NEGATIVE (NEGATIVE); Leukocyte Esterase Urine UA 3+ (NEGATIVE); Nitrite Urine UA NEGATIVE (Negative); Occult Blood Urine UA 1+ (Negative); Protein Urine UA TRACE (Negative); Urobilinogen Urine UA 0.2 E.U./dL (0.2)
[2023-08-13 14:39] LABS: Lactate (Lactic Acid) 0.9 mmol/L (0.7-2.1)
[2023-08-13 14:39] LABS: Bacteria Urine Moderate (10-30); Culture Indicated Urine Specimen Cultured; RBC Urine 0-1/HPF (0-5/HPF); Squamous Epithelial Cell Urine 5-10 /HPF (0-5/HPF); Urine Volume 10mL (spun); WBC Urine 30-100/HPF (0-5/HPF)
[2023-08-13 14:40] LABS: Alanine Aminotransferase 24 IU/L (<50); Albumin 3.4 g/dL (3.5-5.0); Albumin Globulin Ratio 1.1 (1.0-2.8); Alkaline Phosphatase 86 U/L (38-126); Aspartate Aminotransferase 21 IU/L (17-59); BUN Creatinine Ratio 10.3 (6-22); Bilirubin Total 0.6 mg/dL (0.2-1.3); Blood Urea Nitrogen 72 mg/dL (9-20); Calcium 8.3 mg/dL (8.4-10.2); Carbon Dioxide 19 mmol/L (22-32); Chloride 102 mmol/L (98-107); Estimated Glomerular Filt Rate 7 mL/min (>60); Glucose 109 mg/dL (80-110); HEMOLYSIS < 15 (0-50); Sodium 130 mmol/L (137-145); Total Protein 6.4 g/dL (6.3-8.2)
[2023-08-13 14:41] LABS: Potassium 5.4 mmol/L (3.4-5.1)
--- NOTE | 2023-08-13 16:53 | DI.US.S_ITS ---
PROCEDURE: US RENAL COMPLETE INDICATIONS: Acute renal failure TECHNIQUE: Real-time scanning was performed of the kidneys and bladder, with image documentation. COMPARISON: [facility], CT, CT ABDOMEN PELVIS W CON, 11/07/2022, 10:16. FINDINGS: Kidneys: Kidneys are normal in size. Right kidney measures 10 point cm long; left kidney measures 0.8 cm long. Right renal cortical thickness is 0.4 cm; left renal cortical thickness is 0.5 cm Moderate right hydronephrosis and proximal right ureteral dilation, not well imaged. Left renal simple cysts measure up to 4.9 cm. Again, not well imaged due to patient body habitus Bladder: Prevoid volume 1802 cc. Patient unable to void. IMPRESSION: Limited study due to patient body habitus. Suggestion of right-sided hydronephrosis and proximal hydroureter. Consider follow-up CT confirmation. Approved by: Solomon Gary M.D. on 08/13/2023 at 17:56
[2023-08-13 17:15] LABS: Creatinine Urine Random 58.3 mg/dL; Sodium Urine Random 40 mmol/L (30-90)
[2023-08-13] MEDS: SODIUM CHLORIDE 0.9% 1,000 ML 1000 ML IV (17:15)
[2023-08-13] MEDS: LIDOCAINE 2% (GLYDO) 6 ML GEL TOP (18:11)
[2023-08-13 18:25] LABS: Magnesium 1.9 mg/dL (1.6-2.3); Phosphorous 5.2 mg/dL (2.3-3.7)
[2023-08-13 18:26] LABS: Alanine Aminotransferase 22 IU/L (<50); Albumin 3.1 g/dL (3.5-5.0); Albumin Globulin Ratio 1.1 (1.0-2.8); Alkaline Phosphatase 81 U/L (38-126); Aspartate Aminotransferase 19 IU/L (17-59); BUN Creatinine Ratio 9.9 (6-22); Bilirubin Total 0.6 mg/dL (0.2-1.3); Blood Urea Nitrogen 71 mg/dL (9-20); Calcium 8.3 mg/dL (8.4-10.2); Carbon Dioxide 17 mmol/L (22-32); Chloride 103 mmol/L (98-107); Estimated Glomerular Filt Rate 7 mL/min (>60); Globulin 2.8 g/dL (1.7-4.1); Glucose 99 mg/dL (80-110); HEMOLYSIS < 15 (0-50); Sodium 130 mmol/L (137-145); Total Protein 5.9 g/dL (6.3-8.2)
[2023-08-13 18:28] LABS: Potassium 5.6 mmol/L (3.4-5.1)
[2023-08-13 18:37] LABS: Troponin I 0.017 ng/mL (0.01-0.034)
--- NOTE | 2023-08-13 19:06 | CM.IDA ---
Initial DCP Assessment Note Patient is 83 y/o male who presents to ED due to concern for UTI, urinary incontinence via POV. Patient had recent catheter from previous hospitalization at [facility] at the end of June, catheter was removed earlier this month. Patient has hx of BPH, Hyperlipdemia, Hypertension, ELIJAH, UTI, and acute encephalopathy. Patient's PCP is Dr. Josemanuel Baum in [place], Patient has Medicare and [employer] insurance. UNIVERSITY LECTURER enters room to meet with patient, patient presents as A/Ox3. Present in room is patient's daughter Lexis and son Delmar. 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 Patient resides on [address], was historically independent with ADLs but has been dependent of further assistance in recent months. It is reported that patient has current referral with [facility], UNIVERSITY LECTURER reviews collective medical and determines that [facility] was referred upon patient's d/c from [place] in June 2023. Patient's children endorse concern for patient's recent incontinence, weakness and ability to care for self at home. Patient uses [facility] at baseline. UNIVERSITY LECTURER discusses in home caregivers and SNF private pay, at the time patient was not meeting criteria for admission given labs completed at that time. Patient's family endorses need for SNF rehab private pay while they figure out a intermediate care plan at a SNF or [facility]. Family endorses preference for [facility], UNIVERSITY LECTURER contacts [facility] and it is reported that family will need to pay $13,800 for the month and [facility] could likely accept tomorrow afternoon. UNIVERSITY LECTURER contacts [facility] regarding patient and leaves requesting return call. Further medical evaluation, lab work and ultrasound indicate that patient is in acute renal failure, has hydronephrosis, Bacterial UTI and candidiasis of anus. Per provider Katerin Banks PA-C patient likely to require admission. Patient is currently in the ED awaiting further medical evaluation to determine POC. UNIVERSITY LECTURER contacts Gali at [facility] and [facility] regarding current pending disposition. Plan: Awaiting disposition for plan of care, likely admission vs. transfer due to concern for acute renal failure. Family preference for [facility] SNF rehab upon medical clearance, pending PT/OT. Mattie Hernandez WELFARE OFFICER Discharge Planning/Care Management CM Discharge Assessment Start: 08/13/23 18:35 Freq: Status: Active Protocol: Document 08/13/23 18:35 LN (Rec: 08/13/23 18:40 LN [id number]) Discharge Planning Assessment Assigned Content Editor PARRISH Pehlps/Assigned Designee Name Gabriela (daughter) Contact Information [phone] Advance Directives? Yes Advance Directives on File No History Provided By Patient,Family Member,Medical Record Has Patient been admitted in last 30 No days? Comment Patient was admitted at [facility] on 06/20/23- 06/24/23 Prior Living Arrangements House Household Members children Type of transporation used prior to Relies on Others admit Independent with ADL's No Is patient alert and oriented? Yes Needs Assistance With Bathing,Grooming,Meal Prep, Toileting,Managing Medications ,Home Chores / Shopping Comment Patient has current [facility] referral from [place] d/c. DME Already Rented / Owned [facility] / [facility] Patient/Family Preference Longterm Facility Comment Patient and family preference for SNF rehab and family plans to seek intermediate care facility placement for patient . Referrals Initiated Longterm Additional Comment [facility] originally reviewed patient for private pay acceptance tomorrow but patient likely to admit and require more time at hospital before medical clearance. If patient plan is SNF: Has PASSR been No completed? SNF/HH Preference [facility] Has Agency SNF been contacted Yes Review Status In Process Please Provide Date Initial DC 08/13/23 Assessment Was Performed
[2023-08-13] MEDS: SODIUM ZIRCONIUM CYCLOSILICATE 10 GM POWD.PACK PO (21:21)
--- NOTE | 2023-08-13 21:22 | PC.NURSE ---
pt is currently accepted at [facility] by Dr. Lovelace and is on the waitlist for a bed. pt is also on the waitlist at [facility], , and ezequiel joshi for a med surg bed
--- NOTE | 2023-08-13 22:58 | PC.NURSE ---
patient fell asleep and his 02 sat dropped down to 89%. He was placed on 1L NC. His o2 sat came up to 93%
[2023-08-14] VITALS (11 sets, daily range): BP systolic 156–176; BP diastolic 77–96; PULSE 76–81; RESP 16–27; O2SAT 96–98
[2023-08-14 00:51] LABS: BUN Creatinine Ratio 11.5 (6-22); Blood Urea Nitrogen 64 mg/dL (9-20); Calcium 8.2 mg/dL (8.4-10.2); Carbon Dioxide 19 mmol/L (22-32); Chloride 108 mmol/L (98-107); Estimated Glomerular Filt Rate 9 mL/min (>60); Glucose 89 mg/dL (80-110); HEMOLYSIS < 15 (0-50); Sodium 135 mmol/L (137-145)
[2023-08-14 00:53] LABS: Potassium 5.1 mmol/L (3.4-5.1)
[2023-08-14 03:06] LABS: BUN Creatinine Ratio 12.3 (6-22); Blood Urea Nitrogen 63 mg/dL (9-20); Calcium 8.3 mg/dL (8.4-10.2); Carbon Dioxide 20 mmol/L (22-32); Chloride 109 mmol/L (98-107); Estimated Glomerular Filt Rate 10 mL/min (>60); Glucose 85 mg/dL (80-110); HEMOLYSIS < 15 (0-50); Sodium 136 mmol/L (137-145)
[2023-08-14] MEDS: AMPICILLIN 1,000 MG in SODIUM CHLORIDE 0.9% 100 ML 200 MG IV (03:14)
== END 2023-08-14 03:30 | disposition short-term general hospital (02) ==
PROVIDERS: Emergency Medicine; Physician Assistant Medical; Emergency Provider Emergency Medicine; Family Provider Family Medicine
DX: N13.30 Unspecified hydronephrosis (principal); N39.0 Urinary tract infection, site not specified; B37.49 Other urogenital candidiasis; N17.9 Acute kidney failure, unspecified; E87.5 Hyperkalemia; K76.89 Other specified diseases of liver
CPT/HCPCS: 36415; 51798; 76770; 80048; 80053; 81001; 82570; 83605; 83735; 84100; 84300; 84484; 85025; 87077; 87086; 93005; 93010; 96361; 96365; 99285; J0290